=== PATIENT | male | born 1950 | race Caucasian/White ===

== ENCOUNTER 2019-04-06 22:16 | Emergency (ER) | payer MEDICARE, OTHER ==
[~2019-04-06] VITALS: Ht 193 cm; Wt 86.2 kg
[2019-04-06 22:22] VITALS: BP 134/80
== END 2019-04-06 22:52 | disposition home or self-care (01) ==
LOC: M.ERS 22:16
DX: T63.001A Toxic effect of unspecified snake venom, accidental (unintentional), initial encounter (principal); Z87.442 Personal history of urinary calculi; Z88.0 Allergy status to penicillin; Y92.89 Other specified places as the place of occurrence of the external cause

== ENCOUNTER 2020-03-23 23:43 | Emergency (ER) | payer MEDICARE, OTHER | END 2020-03-24 02:50 | disposition short-term general hospital (02) | LOC: M.ERS 23:43 | DX: N20.0 Calculus of kidney (principal); R11.2 Nausea with vomiting, unspecified; Z88.0 Allergy status to penicillin; Z98.890 Other specified postprocedural states ==